=== PATIENT | female | born 1985 | race Caucasian/White ===

== ENCOUNTER → 2017-04-19 | Outpatient (CLI) | payer OTHER | LOC: CIMAGING 14:54 | PROVIDERS: ATTEND Internal Medicine | DX: S82.51XA Displaced fracture of medial malleolus of right tibia, initial encounter for closed fracture (principal); M25.571 Pain in right ankle and joints of right foot | CPT/HCPCS: 73562-PO; 73610-PO ==

== ENCOUNTER 2017-10-11 09:02 | Observation (INO) | payer OTHER ==
[2017-10-11] MEDS ORDERED: ASPIRIN 81 MG CHEWABLE TAB PO ONE (09:15)
[2017-10-11] MEDS ORDERED: LORazepam 2 MG/ML INJ IVP ONE (09:15)
--- NOTE | 2017-10-11 09:19 | EDPHY ---
H & P Stated Complaint: R collarbone, R rib pain, feels numb and tingly - Personal History LMP (Females 10-55): 1-7 Days Ago Current Tetanus Diphtheria and Acellular Pertussis (TDAP): Yes - Medical/Surgical History Hx Asthma: No Hx Chronic Respiratory Disease: No Hx Diabetes: No Hx Cardiac Disease: No Hx Renal Disease: No Hx Cirrhosis: No Hx Alcoholism: No Hx HIV/AIDS: No Hx Splenectomy or Spleen Trauma: No Other PMH: "migraine" - Social History Smoking Status: Current every day smoker Time Seen by Provider: 10/11/17 09:07 HPI/ROS: CHIEF COMPLAINT: Chest pain, dyspnea HISTORY OF PRESENT ILLNESS: 32-year-old female with no prior cardiac or thromboembolic disorder history, works at [employer], complaining of acute onset of right upper chest pain which started at hr this morning. The pain continued and she felt left lower extremity paresthesia which is now resolved, she also experienced bilateral upper extremity carpal pedal spasms and paresthesias which have now resolved. Her chief complaint when I examiner is right-sided chest pain, dyspnea. She has no prior history of coronary artery disease or vasculopathy or coagulopathy. She smokes 1/2 pack per day tobacco. No exogenous estrogen use. No history of malignancy. No family history of vasculopathy or premature coronary artery disease or sudden unexplained REVIEW OF SYSTEMS: A ten point review of systems was performed and is negative with the exception of the items mentioned in the HPI PAST MEDICAL & SURGICAL HISTORY: No coronary artery disease history. No vasculopathy or coagulopathy history. SOCIAL HISTORY:1/2 pack per day tobacco. No drug or cocaine use. No alcohol use. Works at [employer]. FAMILY HISTORY: No family history of premature coronary artery disease, sudden unexplained or coagulopathy or vasculopathy. PHYSICAL EXAM (Prior to examination, patient consented to physical exam, hands were washed and my usual and customary physical exam procedures followed) 1) GENERAL: Well-developed, well-nourished, alert and oriented. Appears anxious uncomfortable. 2) HEAD: Normocephalic, atraumatic 3) HEENT: Pupils equal, round, reactive to light bilaterally. Sclera anicteric. 4) NECK: Full range of motion, no carotid bruit. 5) LUNGS: Clear auscultation bilaterally, no wheezes, no rhonchi, no retractions. 6) HEART: Right chest wall is tender to palpation. No crepitus. She notes relief in symptoms with range of motion of her right upper extremity. Regular rate and rhythm, no murmur, no heave, no gallop. 7) ABDOMEN: No guarding, no rebound, no focal tenderness, negative McBurney's, negative Cummins's, negative Rovsing's, negative peritoneal sign, negative Homans no palpable cord 8) MUSCULOSKELETAL: Moving all extremities, no focal areas of tenderness, no obvious trauma. No peripheral edema or discoloration. 9) BACK: No CVA tenderness, no midline vertebral tenderness, no fluctuance, no step-off, no obvious trauma, no visual or palpable abnormality. 10) SKIN: No rash, no petechiae. 11) Psychiatric: Patient is oriented X 3, there is no agitation. DIFFERENTIAL DIAGNOSIS: In no particular order, including but not limited to myocardial ischemia, pulmonary embolus, chest wall pain, pleural inflammation and pulmonary infectious causes. (Heide Wilcox) Constitutional: Initial Vital Signs Temperature (C) 36.7 C 10/11/17 09:03 Heart Rate 87 10/11/17 09:03 Respiratory Rate 18 10/11/17 09:03 Blood Pressure 137/97 H 10/11/17 09:03 O2 Sat (%) 97 10/11/17 09:03 O2 Delivery Mode Room Air Allergies/Adverse Reactions: clindamycin Allergy (Intermediate, Verified 10/11/17 09:06) full body rash Home Medications: Medication Instructions Recorded NK [No Known Home Meds] 10/11/17 Medical Decision Making - Diagnostics Imaging Results: Imaging Impressions Chest X-Ray 10/11/17 09:16 Impression: 1. Pneumoperitoneum of uncertain significance. Recommend emergent CT abdomen and pelvis. 2. No acute intrathoracic pathology. Findings and recommendations discussed with Heide Wilcox at 9:42 AM hour, 10/11/2017. Abdomen CT 10/11/17 09:47 Impression: 1. Small-moderate volume pneumoperitoneum without identifiable cause. An occult hollow viscus perforation cannot be excluded, however there is no focal inflammatory process to localize. Alternatively, benign pneumoperitoneum can arise from the female reproductive tract, correlate clinically. 2. Hepatic steatosis. Findings and recommendations discussed with Heide Wilcox at 11:40 AM hour , 10/11/2017. Chest/Thorax CTA 10/11/17 09:48 Impression: 1. No pulmonary embolism or other acute intrathoracic pathology. 2. Pneumoperitoneum. Findings and recommendations discussed with Heide Wilcox at 11:36 AM hour , 10/11/2017. Images reviewed by myself (Heide Wilcox) ED Course/Re-evaluation: 9:19 a.m.: I reviewed the patient's old medical records. This patient currently appears uncomfortable. Plan will be laboratory studies, chest x-ray, EKG, D-dimer, analgesia. Care of patient under supervision of secondary supervising physician Dr Shawn Henderson with whom I discussed case. 9:40 a.m.: Consultation with radiologist who called me regarding the patient's subdiaphragmatic air seen on chest x-ray. The patient has not have an IV established yet. Plan will be IV establishment, CT chest, abdomen and pelvis. Patient has no history of chronic NSAID use, notes no abdominal pain currently or recently. 9:43 a.m.: Consultation with Dr. Lee De La Paz who is in the emergency department who will see the patient (Heide Wilcox) I did not see this patient while she was in the emergency department. However her care was discussed with the PA while the patient was in the department. I agree with treatment plan and management (Shawn Henderson) - Data Points Medications Given: Potassium Chloride/Dextrose/Sod Cl (D5w 1/2 Ns W/ 20 Kcl/L) 1,000 mls @ 125 mls /hr IV CONT PATEL Stop: 04/09/18 13:29 Last Admin: 10/11/17 14:18 Dose: 1,000 mls Discontinued Medications Aspirin (Aspirin) 324 mg PO EDNOW ONE Stop: 10/11/17 09:16 Last Admin: 10/11/17 10:16 Dose: Not Given Bupivacaine HCl (Sensorcaine 0.5% Vial) Confirm Administered Dose 30 ml .ROUTE .STK-MED ONE Stop: 10/11/17 11:48 Last Admin: 10/11/17 13:29 Dose: 20 ml Cefazolin Sodium (Ancef Syringe) Confirm Administered Dose 1 gm .ROUTE .STK-MED ONE Stop: 10/11/17 11:48 Last Admin: 10/11/17 13:28 Dose: Not Given Ertapenem (Invanz) 1 gm IV EDNOW ONE PRN Reason: Protocol Stop: 10/11/17 09:47 Last Admin: 10/11/17 10:04 Dose: 1 gm Heparin Sodium (Porcine) (Heparin Sodium) Confirm Administered Dose 1,000 unit .ROUTE .STK-MED ONE Stop: 10/11/17 11:47 Last Admin: 10/11/17 13:28 Dose: Not Given Ketorolac Tromethamine (Toradol) 15 mg IVP EDNOW ONE Stop: 10/11/17 09:21 Last Admin: 10/11/17 10:03 Dose: 15 mg Lorazepam (Ativan Injection) 1 mg IVP EDNOW ONE Stop: 10/11/17 09:16 Last Admin: 10/11/17 10:03 Dose: 1 mg Midazolam HCl (Versed) 2 mg IVP ONCALL ONE Stop: 10/11/17 12:03 Last Admin: 10/11/17 12:16 Dose: 2 mg Morphine Sulfate (Morphine) 4 mg IVP EDNOW ONE Stop: 10/11/17 09:16 Last Admin: 10/11/17 10:16 Dose: Not Given Departure - Departure Disposition: To OP Cath/Surgery Clinical Impression: Pneumoperitoneum Condition: Fair
[2017-10-11] MEDS ORDERED: KETOROLAC 15 MG/1 ML SDV IVP ONE (09:20)
[2017-10-11] MEDS ORDERED: ERTAPENEM 1 GM VIAL IV ONE (09:46)
[2017-10-11 10:13] LABS: PLATELET COUNT 289 10^3/uL (150-400)
[2017-10-11 10:27] LABS: INR 0.97 (0.83-1.16); PROTIME(PATIENT) 13.1 SEC (12.0-15.0)
[2017-10-11] MEDS ORDERED: IOPAMIDOL (ISOVUE 370) 100 ML BTL IV ONE (10:44)
[2017-10-11] MEDS ORDERED: HEPARIN 1000 UNIT/1 ML MDV ONE (11:46)
[2017-10-11] MEDS ORDERED: BUPIVACAINE 0.5% 10 ML SDV ONE (11:47)
[2017-10-11] MEDS ORDERED: ceFAZolin 1 GM/5 ML SYR ONE (11:47)
[2017-10-11] MEDS ORDERED: MIDAZOLAM 2 MG/2 ML VIAL ONE (11:59)
[2017-10-11] MEDS ORDERED: MIDAZOLAM 2 MG/2 ML VIAL IVP ONE (12:02)
--- NOTE | 2017-10-11 12:02 | PDANEPAE ---
ANE History of Present Illness perforated viscous her for laparoscopy ANE Past Medical History - Cardiovascular History Hx Hypertension: No Hx Arrhythmias: No Hx Chest Pain: No Hx Coronary Artery / Peripheral Vascular Disease: No Hx CHF / Valvular Disease: No Hx Palpitations: No - Endocrine History Hx Diabetes: No Obesity: moderate ANE Review of Systems Review of Systems: - Exercise capacity Exercise capacity: >=4 METS ANE Patient History - Allergies Allergies/Adverse Reactions: clindamycin Allergy (Intermediate, Verified 10/11/17 09:06) full body rash - Home Medications Home medications: none Home Medications: NK [No Known Home Meds] 10/11/17 [Last Taken Unknown] - NPO status NPO Since - Solids (Date): 10/11/17 NPO Since - Solids (Time): 07:00 - Anes Hx Anes Hx: no prior problems - Smoking Hx Smoking Status: Current every day smoker (15 pack years) - Alcohol Use Alcohol Use: None - Family Anes Hx Family Anes Hx: none ANE Labs/Vital Signs - Labs Result Diagrams: 10/11/17 10:01 10/11/17 10:01 - Vital Signs Blood Pressure: 135/89 Heart Rate: 87 Respiratory Rate: 20 O2 Sat (%): 94 Height: 160.02 cm Weight: 124.284 kg ANE Physical Exam - Airway Neck exam: FROM Mallampati Score: Class 2 Mouth exam: normal dental/mouth exam Mouth image: 1 - broken - Pulmonary Pulmonary: no respiratory distress, clear to auscultation - Cardiovascular Cardiovascular: regular rate and rhythym, no murmur, rub, or gallop - ASA Status ASA Status: II, E ANE Anesthesia Plan Anesthesia Plan: general endotracheal anesthesia
[2017-10-11] MEDS ORDERED: fentaNYL 100 MCG/2 ML INJ ONE (12:08)
[2017-10-11] MEDS ORDERED: PROPOFOL 200 MG/20 ML VIAL ONE ×2 (12:08→12:09)
[2017-10-11] MEDS ORDERED: ROCURONIUM 100 MG/10 ML VIAL ONE (12:09)
[2017-10-11] MEDS ORDERED: LIDOCAINE 2% 100 MG/5 ML SYR ONE (12:10)
--- NOTE | 2017-10-11 12:22 | PDGENHP ---
History & Physical Chief Complaint: EPIGASTRIC AND CHEST PAIN History of Present Illness: 32-YEAR-OLD FEMALE WITH SUDDEN ONSET THIS MORNING OF EPIGASTRIC AND CHEST PAIN RADIATING UP INTO HER SHOULDERS. SHE BREAKFAST SUCCESSFULLY. SHE HAD NO DYSPHAGIA OR VOMITING OR MAJOR BURPING. SHE PRESENTED TO THE ER WHERE A CHEST X-RAY REVEALED FREE AIR. CT SCAN ALSO CONFIRMED FREE AIR IN THE ABDOMEN WITH NO APPARENT SOURCE. THERE IS NO EVIDENCE OF MEDIASTINAL AIR OR ESOPHAGEAL PERFORATION. NO RECENT SWALLOWING OF CHICKEN BONES ARE 2 VARIX OR ANY OTHER TRAUMA TO HER ESOPHAGUS ABDOMEN OR PELVIS. SHE IS ADMITTED AT THIS TIME FOR LAPAROSCOPY AND/OR LAPAROTOMY FOR EVALUATION OF PERFORATED VISCUS Pertinent Past, Social, Family History: PAST HISTORY IS NEGATIVE FOR ANY MAJOR MEDICAL PROBLEMS OR SERIOUS HOSPITALIZATIONS OTHER THAN 2 SECTIONS. FAMILY HISTORY NONCONTRIBUTORY. REVIEW OF SYSTEMS IS NEGATIVE ON A FULL 10 POINT REVIEW OF SYSTEMS EXCEPT RELATED TO THE HPI. SHE HAS NO HISTORY OF NSAID ABUSE PEPTIC ULCER DISEASE OR INFLAMMATORY BOWEL DISEASE. SHE DOES NOT SMOKE. MEDICATIONS NONE. ALLERGIES CLINDAMYCIN Relevant Physical Exam: GENERAL: HEALTHY OVERWEIGHT 32-YEAR-OLD FEMALE NO ACUTE DISTRESS, AFEBRILE. HEENT PERRLA, NONICTERIC, WITHOUT ADENOPATHY, NO ORAL LESIONS. CHEST CLEAR AND SYMMETRIC WITH NO WHEEZING OR MEDIASTINAL RUBS. COR REGULAR RHYTHM WITHOUT PERICARDIAL RUB. ABDOMEN RELATIVELY SOFT MINIMALLY TENDER IN THE EPIGASTRIUM WITH POSITIVE BOWEL SOUNDS AND NO MASSES. SHE IS OVERWEIGHT. EXTREMITIES FULL RANGE OF MOTION FULL PULSES. NEURO EXAM PHYSIOLOGIC AND SYMMETRIC. PSYCH ALERT ORIENTED AND COOPERATIVE Cardiorespiratory Assessment: IMPRESSION: FREE AIR WITH ATYPICAL PRESENTATION. PLAN LAPAROSCOPY AND/OR LAPAROTOMY FOR EVALUATION. RISKS AND OPTIONS BEEN FULLY DISCUSSED AND SHE WISHES TO PROCEED
[2017-10-11] MEDS ORDERED: ONDANSETRON 4 MG/2 ML VIAL ONE (13:04)
[2017-10-11] MEDS ORDERED: DEXAMETHASONE 4 MG/ML VIAL ONE (13:04)
[2017-10-11] MEDS ORDERED: HYDROCODONE/APAP 5/325 TAB PO PRN ×2 (13:21→13:26)
[2017-10-11] MEDS ORDERED: ONDANSETRON 4 MG/2 ML VIAL IVP PRN ×2 (13:21→13:26)
[2017-10-11] MEDS ORDERED: HYDROmorphONE/DILAUDID 1 MG/ML INJ IVP PRN (13:21)
--- NOTE | 2017-10-11 13:25 | POSTOPPROG ---
Post Op Note Date of Operation: 10/11/17 Surgeon: Lee De La Paz Public Relations Sales Marketing: Vijaya Herrera Anesthesiologist: Ramon Newman Anesthesia: GET(General Endotracheal) Pre-op Diagnosis: free abdominal air Post-op Diagnosis: pneumotosis intestinalis Indication: chest pain and free abdominal air Procedure: ex-laparoscopy Findings: air bubbles of lg bowel. no GI contents. appy ok. no fluid in cul de sac. Inf/Abcess present in the surg proc area at time of surgery?: No EBL: Minimal Complications: none Specimen(s): none
[2017-10-11] MEDS ORDERED: fentaNYL 100 MCG/2 ML INJ IVP PRN (13:26)
[2017-10-11] MEDS ORDERED: OXYCODONE/APAP 5/325 TAB PO PRN (13:26)
[2017-10-11] MEDS ORDERED: NALOXONE HCL 0.4 MG/ML INJ IVP PRN (13:26)
[2017-10-11] MEDS ORDERED: PROMETHAZINE HCL 25 MG/ML INJ IVP PRN (13:26)
[2017-10-11] MEDS ORDERED: ACETAMINOPHEN 500 MG TAB PO PRN (13:26)
--- NOTE | 2017-10-11 13:27 | POSTANESTH ---
Post Anesthetic Evaluation Cardiovascular Status: Normal, Stable, Similar to Pre-Op Cond Respiratory Status: Normal, Stable, Similar to Pre-op Cond. Level of Consciousness/Mental Status: Can Participate in Eval, Alert and Oriented Pain Control: Adequate, Prn Tx Ordered Nausea/Vomiting Control: Adequate, Prn Tx Ordered Complications Possibly Related to Anesthesia: None Noted
[2017-10-11] MEDS ORDERED: HYDROmorphONE/DILAUDID 2 MG/ML INJ IVP PRN (13:41)
[2017-10-11] MEDS: D5W 1/2 NS W/ 20 KCl/L 1,000 ML IV SCH (14:18)
[2017-10-12] MEDS: D5W 1/2 NS W/ 20 KCl/L 1,000 ML IV SCH ×2 (01:18→09:19)
[2017-10-12 04:27] VITALS: TEMP 98.2
[2017-10-12 08:44] VITALS: BP 111/73; PULSE 78; RESP 12; O2SAT 94
[2017-10-12] MEDS ORDERED: ERTAPENEM 1 GM VIAL IV SCH (09:00)
--- NOTE | 2017-10-12 09:58 | ASMTCASEMG ---
Living Arrangements What is your living Answers: With Spouse arrangement? Who do you live with? Type Of Residence What kind of residence do Answers: House you live in? Discharge Plan Comments Coordination Status Comments Notes: Pt is a 32 y/o female admitted for epigastric and chest pain. Pt will most likely d/c independent when medically stable. No therapies ordered at this time. CM available for changes. Plan: Independent Date Signed: 10/12/2017 09:58 AM Electronically Signed By:JENY Greenwood
--- NOTE | 2017-10-12 12:30 | SOAPPROG ---
SOAP Progress Note Assessment/Plan: Assessment/Plan: 32 Y F s/p ex-laparoscopy for free air, POD#1. Surgical findings of pneumatosis intestinalis. No biliary or fecal staining. No ulcers or leaks seen on limited gastrograffin study. Tolerating clears. Diarrhea. New since yesterday. Probably related to gastrograffin. Patient c/o chronic gas and cramping problems. Will get stool studies. Regular diet. Dispo: possibly home today if does well with diet. S: a twinge of pain by incisions and neck. better than yesterday. +diarrhea-- watery she says. no fevers. no chills. no n/v. O: alert, nad mmm no wob rrr abd soft, inc cdi 10/12/17 12:26 Objective: Vital Signs Temp Pulse Resp BP Pulse Ox 36.8 C 78 12 111/73 94 10/12/17 08:00 10/12/17 08:00 10/12/17 08:00 10/12/17 08:00 10/12/17 08:00 Laboratory Results 10/11/17 10:01 10/11/17 10:01 10/11/17 10/12/17 10/13/17 05:59 05:59 05:59 Intake Total 2357 Output Total 100 Balance 2257 PT 13.1 SEC (12.0-15.0) 10/11/17 10:01 INR 0.97 (0.83-1.16) 10/11/17 10:01 ICD10 Worksheet Patient Problems: Problems Problem Status Onset Pneumoperitoneum Acute
--- NOTE | 2017-10-17 21:09 | GOP ---
[f rep st] OPERATIVE REPORT DATE OF OPERATION: 10/11/2017 SURGEON: Lee De La Paz MD PANTS PRESSER: Vijaya Herrera PA-C PREOPERATIVE DIAGNOSIS: Free abdominal air. POSTOPERATIVE DIAGNOSIS: Free abdominal air, with probable pneumatosis coli. PROCEDURE PERFORMED: Laparoscopy. FINDINGS: pneumatosis coli INDICATIONS: The patient is a 32-year-old female with acute epigastric and chest pain and free air on chest x-ray and CT scan, but no apparent source, with a relatively benign soft abdomen. DESCRIPTION OF PROCEDURE: The patient was taken to the operating room, where she received satisfactory general endotracheal anesthesia. She was placed in supine position, prepped and draped in usual sterile fashion. A periumbilical incision was made. A Veress needle was inserted. Pneumoperitoneum was established. A trocar was introduced. Laparoscope was introduced. There was no obvious intraabdominal fluid or signs of any perforation. She did have some pneumatosis along the transverse colon of uncertain relevance. The liver was elevated and appeared to be quite normal. The gallbladder was normal in appearance. The duodenum was well visualized with no evidence of retroperitoneal hemorrhage, bile staining, or edema, and no perforation. The lesser sac was entered with no evidence of any fluid in the lesser sac or staining from a gastric leak or pancreatic injury. The colon was traced throughout its course with no evidence of perforation and the small bowel was run from the ligament of Treitz to the ileocecal valve with no evidence of any perforation. With no free fluid of any significance in the pelvis, it was felt that the only source of this free air on x-ray was possibly the pneumatosis of her colon. She has been having irritable bowels type symptoms with intermittent cramps and constipation, but there were no obvious surgical problems in the abdomen. The trocars were then removed under direct vision. It should be noted that a 2nd trocar had been placed under direct vision, through which we were able to manipulate the abdominal contents. Both trocars removed under direct vision and trocar sites were closed with 4-0 Monocryl subcuticular stitch for the skin. All layers infiltrated with 0.5% Marcaine. She tolerated the procedure well. Blood loss negligible. No complications. /[id number]/MODL MTDD
== END 2017-10-12 18:23 | disposition home or self-care (01) ==
LOC: F3E 14:07
PROVIDERS: ADMIT Surgery; ATTEND Surgery
PROC: 0DJW4ZZ Inspection of Peritoneum, Percutaneous Endoscopic Approach (ICD-10-PCS; principal; 2017-10-11 13:00)
DX: K63.89 Other specified diseases of intestine (principal)
CPT/HCPCS: 49320; 71046; 71275; 74177; 74240; 96374; 96375; 99285; G0378; J1100; J1170; J1335; J1885; J2001; J2060; J2250; J2405; J2704; J3010; Q9967

== ENCOUNTER 2018-06-15 08:21 | Emergency (ER) | payer OTHER ==
[2018-06-15 08:34] VITALS: BP 128/95
--- NOTE | 2018-06-15 08:55 | EDPHY ---
H & P Stated Complaint: Lifelong issues with L great toe ingrown nail. Infection Q6mos. Time Seen by Provider: 06/15/18 09:01 HPI/ROS: HPI: This is a 33-year-old female who presents with Chief Complaint: Lifelong issues with L great toe ingrown nail. Infection Q6mos. Location: Left great toe Quality: Ingrown Duration: Months Signs and Symptoms: No bleeding, no radiation, no numbness, no weakness, no tingling, no incontinence, no decreased range of motion, + swelling, + pain, no fever Timing: Waxes and wane, worse last 2 nights Severity: Moderate Context: Patient is an employee at [employer], presents with several month history of left great ingrown toenail. Patient reports that several months ago she dropped physical education department chair on it that caused initial injury and had a subungal hematoma that had to be drained. Patient then had an infected ingrown toenail and was placed on antibiotics and the redness and swelling resolved. Several weeks ago she had a pedicure performed. Over the last 3-4 days she has increased redness, warmth, swelling in the lateral portion of her left great toenail. She has tried [id number] ingrown toenail remedy for the last 2 days with minimal relief of pain. She wears tennis shoes primarily throughout the day. Denies paresthesias, weakness, decreased range of motion. Modifying Factors: See above Comment: ROS: A comprehensive 10 system review of systems is otherwise negative aside from elements mentioned in the history of present illness. MEDICAL/SURGICAL/SOCIAL HISTORY: Medical history: Migraine headache Surgical history: x2 Social history: Smoker. Denies drug and alcohol use. CONSTITUTIONAL: Nontoxic-appearing overweight pleasant adult white female, awake and alert, no obvious distress HEENT: Atraumatic and normocephalic. NECK: supple EXTREMITIES: 2/2 pulses, strength 5/5, left great toe lateral aspect shows ingrown toenail with mild erythema, swelling, tenderness to palpation; no discharge noted with palpation. DIP/PIP/MCP flexion/extension intact with good light touch sensation. no deformities, no clubbing, no cyanosis or edema. NEUROLOGICAL: no focal neuro deficits. GCS 15. Light touch sensation intact. SKIN: Warm and dry, no erythema. no rash. Good capillary refill. Source: Patient Exam Limitations: No limitations - Personal History Current Tetanus/Diphtheria Vaccine: Unsure - Medical/Surgical History Hx Asthma: No Hx Chronic Respiratory Disease: No Hx Diabetes: No Hx Cardiac Disease: No Hx Renal Disease: No Hx Cirrhosis: No Hx Alcoholism: No Hx HIV/AIDS: No Hx Splenectomy or Spleen Trauma: No Other PMH: "migraine"; 2 c-sections - Social History Smoking Status: Current every day smoker Constitutional: Initial Vital Signs Temperature (C) 36.7 C 06/15/18 08:31 Heart Rate 97 06/15/18 08:31 Respiratory Rate 18 06/15/18 08:31 Blood Pressure 128/95 H 06/15/18 08:31 O2 Sat (%) 97 06/15/18 08:31 O2 Delivery Mode Room Air Allergies/Adverse Reactions: clindamycin Allergy (Intermediate, Verified 06/15/18 08:31) full body rash Home Medications: Medication Instructions Recorded Hydrocodone/APAP 5/325 [[place] 1 - 2 tab PO Q4 PRN #20 tab 10/12/17 5/325 (*)] Amoxicillin/Clavulanate Pot 875 mg PO BID #14 tab 06/15/18 [Augmentin 875 MG TAB (*)] Medical Decision Making Procedures: Procedure: Partial Nail avulsion. Indication: Infected ingrown toenail. Anesthesia: 2 cc of 1% lidocaine without epinephrine Verbal consent was obtained from the patient to drain a subungual hematoma. The patient was prepped in the usual fashion. The lateral 1/4 nail bed was cut and then a forceps used to remove the nail from the nail bed. Irrigated copiously. No active bleeding. Bacitracin and clean sterile dressing applied. There were no complications. The procedure was performed by myself. Procedure: Splint placement. A post op shoe was applied by the Emergency Room phone technician. After application of the splint I returned and re-examined the patient. The splint was adequately immobilizing the joint and distal to the splint the patient's circulation and sensation was intact. ED Course/Re-evaluation: Tetanus is up-to-date. Partial nail avulsion performed in the emergency room Irrigated copiously, bacitracin and clean sterile dressing applied Given postop shoe for comfort Prescription for Augmentin and podiatry follow-up No signs of neurovascular compromise/tenting of skin/compartment syndrome/ extremities and joints examined above and below area of concern and are neurovascularly intact. This patient was seen under the supervision of my secondary supervising physician. I evaluated care for this patient independently. Discussed this patient with Dr. Perry. Differential Diagnosis: Differential diagnosis includes but is not limited to paronychia, felon, abscess , tenosynovitis, ingrown toenail. Departure - Departure Disposition: Home, Routine, Self-Care Clinical Impression: Ingrown left greater toenail Condition: Good Instructions: Ingrown Nail (ED), Partial Nail Avulsion for Ingrown Nail (DC) Additional Instructions: Keep the dressing dry and in place for 48 hours. After 48 hours, you may remove the dressing; wash the site daily with mild soap and water; then pat dry. Apply over the counter topical antibiotic ointment daily and clean sterile dressing until fully healed. Wear proper fitting shoes. Take antibiotic as directed. Do not skip a dose. Take Tylenol 650 mg every 4 hours and/or Ibuprofen 600 mg every 8 hours with food as needed for pain. Follow-up with Podiatry to discuss further treatment options. Referrals: Ally Kumar MD [Primary Care Provider] - As per Instructions Poornima Rankin DPM [Doctor of Podiatric Medicine] - As per Instructions Prescriptions: Amoxicillin/Clavulanate Pot [Augmentin 875 MG TAB (*)] 875 mg PO BID #14 tab
== END 2018-06-15 09:05 | disposition home or self-care (01) ==
PROC: 0HDRXZZ Extraction of Toe Nail, External Approach (ICD-10-PCS; principal; 2018-06-15)
DX: L60.0 Ingrowing nail (principal); F17.200 Nicotine dependence, unspecified, uncomplicated